=== PATIENT | male | born 1995 | race African-American/Black ===

== ENCOUNTER 2021-08-13 10:53 | Emergency (ER) | payer OTHER ==
[2021-08-13] MEDS ORDERED: Sodium Chloride 0.9% 10 ML Syringe FLUSH PRN (11:37)
--- NOTE | 2021-08-13 11:48 | EDM.PDOC ---
ED HPI GENERAL MEDICAL PROBLEM - General Chief Complaint: Chest Pain Stated Complaint: ELEVATED BP/CHEST DISCOMFORT Time Seen by Provider: 08/13/21 11:30 Source of Information: Reports: Patient, RN Notes Reviewed History Limitations: Reports: No Limitations - History of Present Illness INITIAL COMMENTS - FREE TEXT/NARRATIVE: Patient is a 25-year-old male who presents to the ER for evaluation of his elevated blood pressures and chest discomfort. Patient states that he went to the local supply chain technician yesterday as he wanted to try in the and had a physical and was told that his blood pressure was a little bit high he was told to go to his provider today to have this checked out. He states that he went to the [facility] was evaluated by Cynthia Fox and was found to have elevated blood pressure, and some "EKG changes" and was told to come to the ER for further evaluation. On initial exam here, patient is complaining of some mild chest discomfort, and his blood pressure has stayed in the 160s systolically over 105 diastolically. Not having any blurred vision, headache. No fevers or chills, cough or shortness of breath or any sort of nausea/vomiting/diarrhea. Patient states he has never had issues like this before. He is also states that he has never had any sort of chest discomfort before. Treatments INSTRUCTOR FLYING: Reports: Other (see below) Other Treatments INSTRUCTOR FLYING: none Left Chest Pain Score (Numeric/FACES): 2 - Related Data Allergies Allergy/AdvReac Type Severity Reaction Status Date / Time No Known Allergies Allergy Verified 08/13/21 11:27 Home Meds: Home Meds amLODIPine Besylate [Amlodipine Besylate] 10 mg PO DAILY #30 tablet 08/13/21 [Rx] lisinopriL [Prinivil] 10 mg PO DAILY #30 tab 08/13/21 [Rx] Past Medical History - Past Health History Medical/Surgical History: Denies Medical/Surgical History Social & Family History - Tobacco Use Tobacco Use Status *Q: Never Tobacco User - Caffeine Use Caffeine Use: Reports: Coffee, Energy Drinks, Soda - Recreational Drug Use Recreational Drug Use: No ED ROS GENERAL - Review of Systems Review Of Systems: Comprehensive ROS is negative, except as noted in HPI. ED EXAM, GENERAL - Physical Exam Exam: See Below Exam Limited By: No Limitations General Appearance: Alert, WD/WN, No Apparent Distress Respiratory/Chest: No Respiratory Distress, Lungs Clear, Normal Breath Sounds, No Accessory Muscle Use, Chest Non-Tender Cardiovascular: Normal Peripheral Pulses, Regular Rate, Rhythm, No Edema Peripheral Pulses: 2+: Radial (L), Radial (R) Extremities: Normal Inspection, Normal Capillary Refill Neurological: Alert, Oriented, Normal Cognition, No Motor/Sensory Deficits Psychiatric: Normal Affect, Normal Mood Skin Exam: Warm, Dry, Intact, Normal Color, No Rash #1 Interpretation EKG Date: 08/13/21 Time: 11:27 Rhythm: NSR Rate (Beats/Min): 68 [place]: Normal P-Wave: Present QRS: Normal ST-T: Normal QT: Normal Comparison: NA - No Prior EKG EKG Interpretation Comments: No obvious ischemia or acute ST changes noted, reviewed by myself and Dr. Richardson. There are occasional PACs. Course - Vital Signs Last Recorded V/S: Last Vital Signs Temp 97.4 F 08/13/21 11:22 Pulse 64 08/13/21 11:22 Resp 20 08/13/21 11:22 BP 158/99 H 08/13/21 11:22 Pulse Ox 100 08/13/21 11:22 - Orders/Labs/Meds Orders: Active Orders 24 hr Category Date Time Status Peripheral IV Care [RC] . DIRECTED Care 08/13/21 11:37 Ordered PRO B-TYPE NATRIUR PEPT,BNPPRO [CHEM] Stat Lab 08/13/21 11:37 Ordered Sodium Chloride 0.9% [Saline Flush] Med 08/13/21 11:37 Ordered 10 ml FLUSH ASDIRECTED PRN Peripheral IV Insertion Adult [OM.PC] Stat Oth 08/13/21 11:37 Ordered Medication Orders Sodium Chloride (Sodium Chloride 0.9% 10 Ml Syringe) 10 ml FLUSH ASDIRECTED PRN PRN Reason: Keep Vein Open Labs: Laboratory Tests 08/13/21 08/13/21 08/13/21 Range/Units 11:50 11:50 11:50 WBC 5.62 (4.23-9.07) K/mm3 RBC 5.17 (4.63-6.08) M/mm3 Hgb 15.0 (13.7-17.5) gm/dl Hct 44.8 (40.1-51.0) % MCV 86.7 (79.0-92.2) fl MCH 29.0 (25.7-32.2) pg MCHC 33.5 (32.2-35.5) g/dl RDW Std Deviation 41.1 (35.1-43.9) fL Plt Count 145 L (163-337) K/mm3 MPV 11.9 (9.4-12.3) fl Neut % (Auto) 37.8 (34.0-67.9) % Lymph % (Auto) 52.0 (21.8-53.1) % [place] % (Auto) 8.7 (5.3-12.2) % Eos % (Auto) 0.9 (0.8-7.0) Baso % (Auto) 0.4 (0.1-1.2) % Neut # (Auto) 2.13 (1.78-5.38) K/mm3 Lymph # (Auto) 2.92 (1.32-3.57) K/mm3 Wayne # (Auto) 0.49 (0.30-0.82) K/mm3 Eos # (Auto) 0.05 (0.04-0.54) K/mm3 Baso # (Auto) 0.02 (0.01-0.08) K/mm3 PT 10.4 (9.7-12.0) SECONDS INR 0.93 APTT 26.2 (21.7-31.4) SECONDS Sodium 141 (136-145) mEq/L Potassium 3.5 (3.5-5.1) mEq/L Chloride 104 (98-107) mEq/L Carbon Dioxide 29 (21-32) mEq/L Anion Gap 11.5 (5-15) BUN 9 (7-18) mg/dL Creatinine 1.0 (0.7-1.3) mg/dL Est Cr Clr Drug Dosing 118.63 mL/min Estimated GFR (MDRD) > 60 (>60) mL/min BUN/Creatinine Ratio 9.0 L (14-18) Glucose 94 (70-99) mg/dL Calcium 8.9 (8.5-10.1) mg/dL Magnesium 2.0 (1.8-2.4) mg/dL Total Bilirubin 0.6 (0.2-1.0) mg/dL AST 21 (15-37) U/L ALT 47 (16-63) U/L Alkaline Phosphatase 97 (46-116) U/L Troponin I < 0.017 (0.00-0.056) ng/mL Total Protein 7.9 (6.4-8.2) g/dl Albumin 4.1 (3.4-5.0) g/dl Globulin 3.8 gm/dL Albumin/Globulin Ratio 1.1 (1-2) Meds: Medications Generic Name Dose Route Start Last Admin Trade Name Freq PRN Reason Stop Dose Admin Sodium Chloride 10 ml 08/13/21 11:37 Sodium Chloride 0.9% 10 Ml Syringe FLUSH ASDIRECTED PRN Keep Vein Open - Re-Assessments/Exams Free Text/Narrative Re-Assessment/Exam: 08/13/21 11:47 Patient is a 25-year-old male who presents to the ER for the evaluation of his elevated blood pressure chest discomfort, EKG done at the time of triage has no acute EKG changes to suggest acute ischemia. Will go ahead and get some basic labs for further evaluation. 08/13/21 12:55 Patient's labs are all unremarkable, chest x-ray demonstrated no acute abnormalities. We will start the patient on amlodipine and lisinopril 10 mg each at bedtime and have him follow-up Cynthia Fox for repeat blood pressure checks. He does have a blood pressure monitor and can monitor his blood pressure at home. Departure - Departure Time of Disposition: 12:57 Disposition: Home, Self-Care 01 Condition: Good Clinical Impression: Elevated blood pressure reading Instructions: How to Take Your Blood Pressure, Hypertension, Adult, [id number] Referrals: Cynthia Fox PA-C [Primary Care Provider] - Forms: ED Department Discharge Additional Instructions: You were evaluated in the ER today for your chest discomfort and elevated blood pressure readings. Your blood pressure did stay consistently in the 160s systolically. And you have been started on 2 different medications for your blood pressure. This will be amlodipine 10 mg and lisinopril 10 mg. Recommend you take these medications at night for ongoing management. You have been given a 30-day supply to get you by until you can get reevaluated by Cynthia Fox your regular care provider. This medication was electronically sent to the [facility] located near [facility]. You have been given an educational handout on how to take your blood pressure, please do as such for the next week or 2 weeks, and record these numbers on a piece of paper in a diary so you can present these to Cynthia Fox at your next visit. EKG and all other labs that we evaluated for heart issues, were within normal limits, you are not suffering from an acute heart attack, and your EKG was within normal limits for a person your age. Do not hesitate to return to the ER at any time if symptoms change or worsen. Sepsis Event Note (ED) - Focused Exam Vital Signs: Vital Signs Temp Pulse Resp BP Pulse Ox 08/13/21 11:22 97.4 F 64 20 158/99 H 100 - My Orders Last 24 Hours: My Active Orders 08/13/21 11:37 Peripheral IV Care [RC] . DIRECTED PRO B-TYPE NATRIUR PEPT,BNPPRO [CHEM] Stat Sodium Chloride 0.9% [Saline Flush] 10 ml FLUSH ASDIRECTED PRN Peripheral IV Insertion Adult [OM.PC] Stat - Assessment/Plan Last 24 Hours: My Active Orders 08/13/21 11:37 Peripheral IV Care [RC] . DIRECTED PRO B-TYPE NATRIUR PEPT,BNPPRO [CHEM] Stat Sodium Chloride 0.9% [Saline Flush] 10 ml FLUSH ASDIRECTED PRN Peripheral IV Insertion Adult [OM.PC] Stat
--- NOTE | 2021-08-13 12:01 | CR ---
Chest: Portable view of the chest was obtained. Comparison: Prior chest x-ray is not available. Heart size and mediastinum are normal. Lungs are clear with no acute parenchymal change. Bony structures show nothing acute. Impression: 1. Nothing acute is seen on portable chest x-ray. Diagnostic code #1
== END 2021-08-13 13:00 | disposition home or self-care (01) ==
LOC: JD.ED 10:53
DX: I10 Essential (primary) hypertension (principal); Z79.899 Other long term (current) drug therapy
CPT/HCPCS: 36415; 71045; 71045-26; 80053; 83735; 83880; 84484; 85025; 85610; 85730; 93005; 99284-25